=== PATIENT | female | born 1955 | race Hispanic/Latino ===

== ENCOUNTER 2017-07-09 00:40 | Emergency (ER) | payer BC ==
[2017-07-09 01:19] VITALS: BP 115/59; TEMP 99; BMI 26.5
[2017-07-09 01:23] VITALS: PULSE 97
[2017-07-09] MEDS ORDERED: Alum-Mag Hydrox-Simethicone Susp (30 mL) PO STA (01:28)
--- NOTE | 2017-07-09 01:32 | ED PDOC ---
Arrival/HPI - General Historian: Patient <Dipak Rosenthal - Last Filed: 07/09/17 02:09> <Amaury Conrad - Last Filed: 07/09/17 02:18> - General Chief Complaint: Alcohol Ingestion Time Seen by Provider: 07/09/17 01:28 - History of Present Illness Narrative History of Present Illness (Text): 07/09/17 01:30 61 y/o female, no significant pmh, nkda, c/o burning throat and epigastric x 2 hours s/p drinking the 2 shots of hard liquor. Pt. stated that it feels burning sensation, no chest pain or shortness of breath, no palpitation, no night sweat, no palpitation, non-radiating, no other medical or psychological complaints. (Dipak Rosenthal) Past Medical History - Provider Review Nursing Documentation Reviewed: Yes - Reproductive Menopause: Yes - Cardiac Hx Cardiac Disorders: No - Pulmonary Hx Respiratory Disorders: No - Neurological Hx Neurological Disorder: No - HEENT Hx HEENT Disorder: No - Renal Hx Renal Disorder: No - Endocrine/Metabolic Hx Endocrine Disorders: No - Hematological/Oncological Hx Blood Disorders: No - Integumentary Hx Dermatological Disorder: No - Musculoskeletal/Rheumatological Hx Musculoskeletal Disorders: No - Gastrointestinal Hx Gastrointestinal Disorders: No - Genitourinary/Gynecological Hx Genitourinary Disorders: No - Psychiatric Hx Psychophysiologic Disorder: No Hx Substance Use: No - Anesthesia Hx Anesthesia: No <Dipak Rosenthal - Last Filed: 07/09/17 02:09> Family/Social History - Physician Review Nursing Documentation Reviewed: Yes Family/Social History: Unknown Family HX Smoking Status: Never Smoked Hx Alcohol Use: No Hx Substance Use: No <Dipak Rosenthal - Last Filed: 07/09/17 02:09> Allergies/Home Meds <Dipak Rosenthal - Last Filed: 07/09/17 02:09> <Amaury Conrad - Last Filed: 07/09/17 02:18> Allergies/Adverse Reactions: Allergies No Known Allergies Allergy (Verified 07/09/17 01:19) Review of Systems - Review of Systems Constitutional: absent: Fatigue, Fevers Eyes: absent: Vision Changes ENT: Sore Throat. absent: Hearing Changes Respiratory: absent: SOB, Cough Cardiovascular: absent: Chest Pain Gastrointestinal: Abdominal Pain. absent: Diarrhea, Nausea, Vomiting Musculoskeletal: absent: Arthralgias, Back Pain, Myalgias Skin: absent: Rash, Pruritis <Dipak Rosenthal - Last Filed: 07/09/17 02:09> Physical Exam Vital Signs Reviewed: Yes Temperature: Afebrile Pulse: Regular Respiratory Rate: Normal Appearance: Positive for: Well-Appearing, Non-Toxic Pain Distress: Severe Mental Status: Positive for: Alert and Oriented X 3 - Systems Exam Head: Present: Atraumatic, Normocephalic Pupils: Present: PERRL Extroacular Muscles: Present: EOMI Conjunctiva: Present: Normal Mouth: Present: Moist Mucous Membranes Pharnyx: No: ERYTHEMA, EXUDATE, TONSILS ENLARGED, Uvular Deviation, Muffled/ Hoarse Voice, Strider, Soft Palate/Uvular Edema Neck: Present: Normal Range of Motion Respiratory/Chest: Present: Clear to Auscultation, Good Air Exchange. No: Respiratory Distress, Accessory Muscle Use Cardiovascular: Present: Regular Rate and Rhythm, Normal S1, S2. No: Murmurs Abdomen: Present: Tenderness (+ttp), Normal Bowel Sounds. No: Distention, Peritoneal Signs, Rebound, Guarding Back: Present: Normal Inspection Upper Extremity: Present: Normal Inspection. No: Cyanosis, Edema Lower Extremity: Present: Normal Inspection. No: Edema Neurological: Present: GCS=15, CN II-XII Intact, Speech Normal Skin: Present: Warm, Dry, Normal Color. No: Rashes Psychiatric: Present: Alert, Oriented x 3, Normal Insight, Normal Concentration <Dipak Rosenthal - Last Filed: 07/09/17 02:09> Medical Decision Making - EKG Interpretation Interpreted by ED Physician: Yes Type: 12 lead EKG <Dipak Rosenthal - Last Filed: 07/09/17 02:09> <Amaury Conrad - Last Filed: 07/09/17 02:18> ED Course and Treatment: 07/09/17 01:31 -GI cocktail -observe and reassess 07/09/17 02:09 -Pt. is asleep, feeling relief. -EKG: NSR @ 93 BPM, no ST elevation or depression, no T wave inversion. -Case discussed with Dr. Conrad, agreed to dispo the patient home. -Discharge home pepcid, stay hydrated, avoid drinking alcohol, avoid acidic/sour /spicy food, follow up with your own pmd and GI within 2 days, return to the ER for any new or worsening signs or symptoms. (Dipak Rosenthal) - EKG Interpretation EKG Interpretation (Text): 07/09/17 02:09 NSR @ 93 BPM, no ST elevation or depression, no T wave inversion. (Dipak Rosenthal) - Medication Orders Current Medication Orders: Discontinued Medications Al Hydrox/Mg Hydrox/Simethicone (Maalox Plus 30 Ml) 30 ml PO STAT STA Stop: 07/09/17 01:29 Last Admin: 07/09/17 01:43 Dose: 30 ml Dicyclomine HCl (Bentyl) 20 mg PO STAT STA Stop: 07/09/17 01:29 Last Admin: 07/09/17 01:43 Dose: 20 mg Famotidine (Pepcid) 20 mg PO STAT STA Stop: 07/09/17 01:30 Last Admin: 07/09/17 01:43 Dose: 20 mg Lidocaine HCl (Lidocaine 2% Viscous) 15 ml PO STAT STA Stop: 07/09/17 01:29 Last Admin: 07/09/17 01:43 Dose: 15 ml - PA / GRAIN DRIER / Resident Statement KISHAN has reviewed & agrees with the documentation as recorded. <Dipak Rosenthal - Last Filed: 07/09/17 02:09> - PA / GRAIN DRIER / Resident Statement KISHAN has reviewed & agrees with the documentation as recorded. KISHAN has examined the patient and agrees with the treatment plan. <Amaury Conrad - Last Filed: 07/09/17 02:18> Disposition/Present on Arrival - Present on Arrival Any Indicators Present on Arrival: No History of DVT/PE: No History of Uncontrolled Diabetes: No Urinary Catheter: No History of Decub. Ulcer: No History Surgical Site Infection Following: None - Disposition Have Diagnosis and Disposition been Completed?: Yes Disposition Time: 02:11 Patient Plan: Discharge <Dipak Rosenthal - Last Filed: 07/09/17 02:09> <Amaury Conrad - Last Filed: 07/09/17 02:18> - Disposition Diagnosis: Alcohol drinker Disposition: HOME/ ROUTINE Condition: IMPROVED Additional Instructions: -Discharge home pepcid, stay hydrated, avoid drinking alcohol, avoid acidic/sour /spicy food, follow up with your own pmd and GI within 2 days, return to the ER for any new or worsening signs or symptoms. Prescriptions: Famotidine [Pepcid] 20 mg PO BID PRN #20 tab PRN Reason: Other Referrals: Rachell Jackson, [Primary Care Provider] - Follow up with primary Christine VAIL,MD Pop [Medical Doctor] - Follow up with primary Forms: [facility] ([place] [place]), WORK NOTE
[2017-07-09 02:21] VITALS: RESP 16; O2SAT 99
--- NOTE | 2017-07-10 00:59 | CARD ---
APPROVED REPORT EKG Measurement Heart [id number] <Conclusion> Normal sinus rhythm Possible Left atrial enlargement Borderline ECG
== END 2017-07-09 02:21 | disposition home or self-care (01) ==
LOC: ED 00:40
DX: Z78.9 Other specified health status (principal)